=== PATIENT | female | born 1970 | race Caucasian/White ===

== ENCOUNTER 2021-03-23 08:18 | Inpatient (IN) ==
[~2021-03-23 08:18] MED LIST: Famotidine 20 MG TABLET PO ONE
[2021-03-23] MEDS ORDERED: Ondansetron 4 MG/2 ML VIAL IVP PRN ×2 (08:32→12:30)
[2021-03-23] MEDS ORDERED: *HR* FentaNYL (PF) 100 MCG/2 ML VIAL IVP PRN (08:32)
[2021-03-23] MEDS ORDERED: *HR* HYDROmorphone PF 0.5 MG/0.5 ML SYRINGE IVP PRN (08:32)
[2021-03-23] MEDS ORDERED: cefOXitin 2,000 MG in 0.9 % Sodium Chloride Mini Bag 100 ML IVPB ONE (08:39)
[2021-03-23] MEDS ORDERED: Ringers Solution, Lactated 1,000 ML IVC SCH (08:45)
[2021-03-23] MEDS ORDERED: *HR* Propofol 200 MG/20 ML VIAL IVP ONE (08:49)
[2021-03-23] MEDS ORDERED: *HR* Midazolam HCl 2 MG/2 ML VIAL ONE (08:49)
[2021-03-23] MEDS ORDERED: *HR* FentaNYL (PF) 100 MCG/2 ML VIAL ONE (08:49)
[2021-03-23] MEDS ORDERED: cefOXitin 2,000 MG in Water for inj. (sterile) 10 ML IVP ONE (09:00)
[2021-03-23] MEDS ORDERED: Acetaminophen IV 0 MG/0 ML BAG IVPB ONE (09:40)
[2021-03-23] MEDS ORDERED: *HR* Rocuronium Bromide 50 MG/5 ML VIAL ONE (10:11)
[2021-03-23] MEDS ORDERED: Ondansetron 4 MG/2 ML VIAL ONE (10:11)
[2021-03-23] MEDS ORDERED: Lidocaine -MPF 2% 2 ML VIAL ONE (10:11)
[2021-03-23] MEDS ORDERED: Ketorolac 30 MG/ML VIAL ONE (10:12)
[2021-03-23] MEDS ORDERED: Sugammadex Sodium 200 MG/2 ML VIAL IV ONE (11:07)
[2021-03-23] MEDS ORDERED: *HR* HYDROMORPHONE 2 MG/ML VIAL ONE (11:10)
[2021-03-23] MEDS ORDERED: *HR* OxyCODONE Immed Rel 5 MG TABLET PO PRN (12:30)
[2021-03-23] MEDS ORDERED: Naloxone 0.4 MG/ML INJ IVP PRN (12:30)
[2021-03-23] MEDS ORDERED: Sennosides 8.6 MG TABLET PO PRN (12:30)
[2021-03-23] MEDS: Ringers Solution, Lactated 1,000 ML IVC SCH ×2 (13:30→21:31)
[2021-03-23] MEDS: Acetaminophen 325 MG TABLET PO SCH ×2 (13:31→18:53)
[2021-03-23] MEDS: Ibuprofen 600 MG TABLET PO SCH ×2 (13:33→18:53)
[2021-03-23] MEDS ORDERED: carvediloL 6.25 MG TABLET PO SCH (21:00)
[2021-03-24] MEDS: Acetaminophen 325 MG TABLET PO SCH ×2 (01:10→06:53)
[2021-03-24] MEDS: Ibuprofen 600 MG TABLET PO SCH ×2 (05:03→06:55)
[2021-03-24 09:05] VITALS: BP 114/60; PULSE 84; TEMP 98; O2SAT 99
== END 2021-03-24 09:46 | disposition home or self-care (01) | DRG 742 ==
LOC: SAMDAY 08:18 → 1NENUPED 12:23
PROVIDERS: ADMIT Student in an Organized Health Care Education/Training Program; ATTEND Student in an Organized Health Care Education/Training Program